=== PATIENT | female | born 1945 | race Caucasian/White ===

== ENCOUNTER → 2019-10-21 17:06 | Outpatient (BNVA) | payer BC, MEDICAID, SELFPAY | PROVIDERS: Family Provider Family Medicine; Visit Provider Emergency Medicine | DX: R09.89 Other specified symptoms and signs involving the circulatory and respiratory systems (principal); R10.9 Unspecified abdominal pain; R10.11 Right upper quadrant pain; R19.7 Diarrhea, unspecified; J43.9 Emphysema, unspecified; I51.7 Cardiomegaly; M41.85 Other forms of scoliosis, thoracolumbar region | CPT/HCPCS: 71046; 80053; 83690; 85025 ==